=== PATIENT | male | born 1990 ===

== ENCOUNTER 2023-07-14 21:41 | Emergency (ER) | payer SELFPAY ==
[2023-07-14] MEDS: Acetaminophen 325 MG Tab PO ONE (22:46)
[2023-07-14] MEDS: Ibuprofen 600 MG Tab PO ONE (22:47)
[2023-07-14] MEDS: Clindamycin HCl 150 MG Cap PO ONE (22:47)
== END 2023-07-14 23:00 | disposition home or self-care (01) ==
LOC: MW.ED 21:41
DX: K08.89 Other specified disorders of teeth and supporting structures (principal); Z88.0 Allergy status to penicillin
CPT/HCPCS: 99282; A9270; 99283